=== PATIENT | male | born 1980 | race American Indian/Alaskan Native ===

== ENCOUNTER 2020-06-16 01:56 | Emergency (ER) | payer SELFPAY ==
[2020-06-16 03:26] VITALS: BP 118/68
[2020-06-16] MEDS ORDERED: LIDOCAINE-MPF (1%) 10 MG/1 ML VIAL 5 ML INFILTRATI ONE (04:06)
--- NOTE | 2020-06-16 04:14 | XRay Report ---
Right hand-2 views INDICATION: Cut with glass right thumb. COMPARISON: None. IMPRESSION: No acute fracture or retained radiopaque foreign body. Mild soft tissue swelling. No si gnificant DJD. Signer Name: Jas Cole MD Signed: 06/16/2020 4:09 AM Workstation Name: [id number]
--- NOTE | 2020-06-16 04:15 | Emergency Department Report ---
- General Chief Complaint: Wound/Laceration Stated Complaint: R HAND INJURY Time Seen by Provider: 06/16/20 03:55 Source: patient Mode of arrival: Ambulatory Limitations: No Limitations - History of Present Illness Initial Comments: 39-year-old male states that a 65 inch television was falling and he attempted to catch. He sustained laceration to the base of his right thumb. Patient states that his tetanus is up to date he denies any glass involvement with the injury. He also denies any chronic medical condition. No active bleeding at this time. -: Sudden Time: 11:00 Place: home Context: accidental Associated Symptoms: pain, other (Laceration bleeding) - Related Data Previous Rx's Medication Instructions Recorded Last Taken Type Cyclobenzaprine HCl [Flexeril 5 MG 5 mg PO Q8HR PRN #15 tablet 06/18/15 Unknown Rx TAB] Ibuprofen [Motrin 800 MG tab] 800 mg PO Q8HR PRN #30 tablet 06/18/15 Unknown Rx traMADoL [Ultram 50 MG tab] 50 mg PO Q6HR PRN #15 tablet 06/18/15 Unknown Rx Ibuprofen [Motrin] 600 mg PO Q8H PRN #21 tablet 06/16/20 Unknown Rx Allergies Allergy/AdvReac Type Severity Reaction Status Date / Time No Known Allergies Allergy Verified 06/18/15 12:46 ED Review of Systems ROS: Stated complaint: R HAND INJURY Other details as noted in HPI Comment: All other systems reviewed and negative Constitutional: no symptoms reported Respiratory: no symptoms reported Endocrine: no symptoms reported Skin: other (3 cm laceration to the base of the right thumb) ED Past Medical Hx - Past Medical History Previous Medical History?: No - Surgical History Past Surgical History?: No - Social History Smoking Status: Current Every Day Smoker Substance Use Type: None - Medications Home Medications: Home Medications Medication Instructions Recorded Confirmed Last Taken Type Cyclobenzaprine HCl [Flexeril 5 MG 5 mg PO Q8HR PRN #15 tablet 06/18/15 Unknown Rx TAB] Ibuprofen [Motrin 800 MG tab] 800 mg PO Q8HR PRN #30 tablet 06/18/15 Unknown Rx traMADoL [Ultram 50 MG tab] 50 mg PO Q6HR PRN #15 tablet 06/18/15 Unknown Rx Ibuprofen [Motrin] 600 mg PO Q8H PRN #21 tablet 12/25/20 Unknown Rx ED Physical Exam - General Limitations: No Limitations General appearance: alert, in no apparent distress - Head Head exam: Present: atraumatic - Eye Eye exam: Present: normal appearance - ENT ENT exam: Present: normal exam - Neck Neck exam: Present: normal inspection - Respiratory Respiratory exam: Present: normal lung sounds bilaterally - Cardiovascular Cardiovascular Exam: Present: regular rate, normal heart sounds - Extremities Exam Extremities exam: Present: full ROM, normal capillary refill, other (3 cm laceration to the base of the right thumb) - Neurological Exam Neurological exam: Present: alert, oriented X3 - Psychiatric Psychiatric exam: Present: normal affect - Skin Skin exam: Present: warm ED Course Vital Signs 06/16/20 03:18 Temperature 98.0 F Pulse Rate 90 Respiratory 18 Rate Blood Pressure 118/68 O2 Sat by Pulse 97 Oximetry - Laceration /Wound Repair Right Hand Wound Length (cm): 3 ([place] shaped) Wound's Depth, Shape: superficial Wound Explored: clean Betadine Prep?: Yes Anesthesia: 1% Lidocaine Volume Anesthetic (ccs): 5 Suture Size/Type: 3:0, nylon Number of Sutures: 6 Layer Closure?: No Number Deep Layer Sutures: 0 Sterile Dressing Applied?: No Progress: The base of the right bleeding controlled site anesthetized with 5 cc of lidocaine patient tolerated well six 3-0 nylon used patient tolerated well eurovascular intact. Neosporin and a clean dry dressing applied ED Medical Decision Making - Radiology Data Radiology results: report reviewed X-ray of the right hand INDICATION: Cut with glass right thumb. COMPARISON: None. IMPRESSION: No acute fracture or retained radiopaque foreign body. Mild soft tissue swelling. No significant DJD. - Medical Decision Making 39-year-old male attempt to catch a falling TV he sustained 3 cm laceration to the base of his right thumb. X-rays revealed no foreign object no fracture or dislocation. Patient sutured 6 sutures to the base of the right he tolerated well. Wound care instructions given his tetanus is up-to-date instructions to have sutures removed in 7 to 10 days given - Differential Diagnosis Laceration rule out fracture rule out this location Critical Care Time: No Critical care attestation.: If time is entered above; I have spent that time in minutes in the direct care of this critically ill patient, excluding procedure time. ED Disposition Clinical Impression: Suture of skin wound Contusion of right hand Qualifiers: Encounter type: initial encounter Qualified Code(s): S60.221A - Contusion of right hand, initial encounter Disposition: TO HOME OR SELFCARE Is pt being admited?: No Does the pt Need Aspirin: No Condition: Stable Instructions: Sutured Wound Care Additional Instructions: Keep wound clean and dry. Change the dressing that you currently have 1:01 day. Then apply a clean dry dressing every day avoid soaking in water. You may shower daily pat dry the wound do not apply any ointments to the area just keep wound clean and dry. Follow-up with your primary care doctor for suture removal in 7 to 10 days Prescriptions: Ibuprofen [Motrin] 600 mg PO Q8H PRN #21 tablet PRN Reason: Pain Referrals: PRIMARY CAREMD [Primary Care Provider] - 3-5 Days JANUSZ MATTHEW MD [Staff Physician] - 3-5 Days Time of Disposition: 04:50
[2020-06-16] MEDS ORDERED: NEOMY 3.5 MG/BACIT 400 UNITS/POLY B 5000 UNITS/GM OINT PACKET TP ONE (04:46)
[2020-06-16] MEDS ORDERED: IBUPROFEN 600 MG TAB PO ONE (05:28)
== END 2020-06-16 05:47 | disposition home or self-care (01) ==
LOC: ED 01:56
DX: S60.221A Contusion of right hand, initial encounter (principal); T81.31XA Disruption of external operation (surgical) wound, not elsewhere classified, initial encounter; F17.200 Nicotine dependence, unspecified, uncomplicated; Z79.899 Other long term (current) drug therapy; X50.9XXA Other and unspecified overexertion or strenuous movements or postures, initial encounter; Y93.89 Activity, other specified; Y92.89 Other specified places as the place of occurrence of the external cause; Y99.8 Other external cause status
CPT/HCPCS: 12002; 73120; 99283; A6250

== ENCOUNTER 2022-03-14 18:29 | Emergency (ER) | payer SELFPAY ==
[2022-03-14 18:45] VITALS: BP 132/86
== END 2022-03-15 10:28 | disposition left against medical advice (07) ==
LOC: ED 18:29
DX: Z04.1 Encounter for examination and observation following transport accident (principal); Z53.21 Procedure and treatment not carried out due to patient leaving prior to being seen by health care provider; V89.2XXA Person injured in unspecified motor-vehicle accident, traffic, initial encounter; Y93.89 Activity, other specified; Y92.89 Other specified places as the place of occurrence of the external cause; Y99.8 Other external cause status